=== PATIENT | female | born 1990 | race Caucasian/White ===

== ENCOUNTER 2018-08-08 13:10 | Outpatient (CLI) | payer BC | END 2018-08-08 13:11 | disposition home or self-care (01) | LOC: LAB 13:10 | PROVIDERS: ATTEND Registered Nurse | DX: O46.91 Antepartum hemorrhage, unspecified, first trimester (principal) | CPT/HCPCS: 36415; 84702; 86901 ==

== ENCOUNTER 2018-08-09 21:35 | Outpatient (CLI) | payer BC ==
--- NOTE | 2018-08-10 07:45 | Ultrasound Report ---
Reason: VAGINAL BLEEDING,FIRST TRIMESTER Procedure Date: 08/09/2018 Accession Number: [id number] / [id number] Procedure: US - OB First Trimester CPT Code: FULL RESULT: EXAM: FIRST TRIMESTER OBSTETRIC ULTRASOUND (Less than 11 weeks) EXAM DATE: 08/09/2018 10:40 PM. CLINICAL HISTORY: . Cramping and spotting on and off for a week. LMP: 06/14/2018. COMPARISONS: None. TECHNIQUE: Transabdominal ultrasound examination with static image documentation. CLINICAL DATES: EGA 8 weeks 0 days with YUDELKA 03/21/2019 based on LMP. ASSESSMENT: Gestational Sac: Single intrauterine. Mean gestational sac diameter: 36.7 mm = 8 weeks 6 days. Embryo: CRL (crown-rump length) 17.7 mm = 8 weeks 2 days. Cardiac activity: 166 beats per minute. Yolk sac: 3.5 mm. Amniotic fluid: Not accurately assessed at this gestational age. Early placenta: Not visible at this gestational age. Other: No perigestational fluid collection demonstrated. MATERNAL STRUCTURES: Uterus: Anteverted. Unremarkable. Cervix: Closed. Right Ovary/Adnexa: The ovary measures 2.1 x 2.4 x 1.6 cm, volume 4.2 cc. Unremarkable. Left Ovary/Adnexa: The ovary measures 1.9 x 3.1 x 2.0 cm, volume 6.1 cc. Unremarkable. Free Fluid: None. Other: None. IMPRESSION: 1. Single viable intrauterine at EGA 8 weeks 2 days with YUDELKA 03/19/2019 based on crown-rump length, which is concordant with clinical dates. 2. No abnormalities identified to explain cramping and spotting. RADIA The call report notification system was initiated by Dr. Ty Pritchett at 11:06 PM hrs on 08/09/2018.
== END 2018-08-09 21:36 | disposition home or self-care (01) ==
LOC: DI 21:35
PROVIDERS: ATTEND Registered Nurse
DX: O46.91 Antepartum hemorrhage, unspecified, first trimester (principal); Z3A.08 8 weeks gestation of pregnancy
CPT/HCPCS: 76801

== ENCOUNTER 2018-08-31 02:57 | Outpatient (CLI) | payer BC | END 2018-08-31 02:58 | disposition critical access hospital (66) | LOC: EMS 02:57 | PROVIDERS: ATTEND Surgery | DX: N93.9 Abnormal uterine and vaginal bleeding, unspecified (principal); R10.9 Unspecified abdominal pain; R42 Dizziness and giddiness; R11.0 Nausea | CPT/HCPCS: A0425; A0427 ==

== ENCOUNTER 2018-08-31 03:35 | Emergency (ER) | payer BC ==
--- NOTE | 2018-08-31 03:57 | ED Physician Documentation ---
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 felt well until 10 PM tonight when she had sudden onset pelvic cramping and vaginal bleeding. BIBA and given fentanyl en route. Review of Systems Constitutional: reports: Reviewed and negative Cardiac: reports: Reviewed and negative Respiratory: reports: Reviewed and negative GI: reports: Abdominal Pain (pelvic pain). denies: Nausea, Vomiting : reports: Vaginal bleeding. 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 - Past Surgical History /RATING EXAMINER: Other - Present Medications Home Medications: Ambulatory Orders Medication Instructions Recorded Confirmed oxyCODONE [Roxicodone] 5 mg PO Q6H PRN #14 tablet 08/31/18 - Allergies Allergies/Adverse Reactions: Allergies Allergy/AdvReac Type Severity Reaction Status Date / Time No Known Drug Allergies Allergy Verified 08/31/18 03:41 - Social History Does the pt smoke?: No Smoking Status: Never smoker Does the pt drink ETOH?: No Does the pt have substance abuse?: No - Immunizations Immunizations are current?: Yes PD ED PE NORMAL - Vitals Vital signs reviewed: Yes - General General: Alert and oriented X 3, No acute distress, Well developed/nourished - Cardiac Cardiac: RRR, No murmur - Respiratory Respiratory: No respiratory distress, Clear bilaterally - Abdomen Abdomen: Normal bowel sounds, Soft, Non tender, Non distended - Back Back: No CVA TTP PD ED PE EXPANDED - Female Female : Cloth Sander present, Other (No active bleeding. Small amount clotted blood in vagina. IUD string from cervical os without any other visible portion of IUD. ). No: Dilated cervix, Tissue present Results - Vitals Vitals: Oxygen O2 Source Room air - Labs Labs: Laboratory Tests 08/31/18 08/31/18 04:20 04:20 WBC 7.8 RBC 3.13 L Hgb 9.9 L Hct 29.0 L MCV 92.7 MCH 31.5 H MCHC 34.0 RDW 12.8 Plt Count 239 MPV 7.9 Neut # (Auto) 6.1 Lymph # (Auto) 0.9 L Worth # (Auto) 0.6 Eos # (Auto) 0.2 Baso # (Auto) 0.1 Absolute Nucleated RBC 0.00 Nucleated RBC % 0.0 Sodium 136 Potassium 3.5 Chloride 105 Carbon Dioxide 24 Anion Gap 7.0 BUN 12 Creatinine 0.6 Estimated GFR (MDRD) 118 Glucose 90 Calcium 8.6 - Rads (name of study) Pelvic / TV US Radiology: Prelim report reviewed, See rad report PD MEDICAL DECISION MAKING - ED course Complexity details: reviewed results, re-evaluated patient, considered differential, d/w patient Departure - Departure Disposition: 01 Home, Self Care Clinical Impression: Vaginal bleeding Condition: Good Instructions: ED Pelvic Pain UKO, ED Post Op Pain Follow-Up: Loraine Chakraborty DO [Provider Admit Priv/Credential] - (Call this morning to arrange for next available appointment) Prescriptions: oxyCODONE [Roxicodone] 5 mg PO Q6H PRN #14 tablet PRN Reason: Pain Discharge Date/Time: 08/31/18 07:04
[2018-08-31] MEDS ORDERED: MORPHINE 2 MG/ML CARPUJECT IVP STA ×2 (04:12→06:01)
[2018-08-31 04:42] LABS: BASOPHILS # (AUTO) 0.1 10^3/uL (0.0-0.1); BASOPHILS % (AUTO) 1.1 %; EOSINOPHILS # (AUTO) 0.2 10^3/uL (0.0-0.7); EOSINOPHILS % (AUTO) 2.1 %; HGB - HEMOGLOBIN 9.9 g/dL (12.0-16.0); LYMPHOCYTES # (AUTO) 0.9 10^3/uL (1.5-3.5); LYMPHOCYTES % (AUTO) 11.8 %; MEAN CORPUSCULAR HEMOGLOBIN 31.5 pg (27.0-31.0); MEAN CORPUSCULAR VOLUME 92.7 fL (81.0-99.0); MEAN PLATELET VOLUME 7.9 fL (7.9-10.8); MONOCYTES # (AUTO) 0.6 10^3/uL (0.0-1.0); MONOCYTES % (AUTO) 7.6 %; NEUTROPHILS # (AUTO) 6.1 10^3/uL (1.5-6.6); NEUTROPHILS % (AUTO) 77.4 %; PLT - PLATELET COUNT 239 10^3/uL (130-450); RED BLOOD COUNT 3.13 10^6/uL (4.20-5.40); RED CELL DISTRIBUTION WIDTH 12.8 % (12.0-15.0); WHITE BLOOD COUNT 7.8 x10^3/uL (4.8-10.8)
[2018-08-31 04:44] LABS: CALCIUM 8.6 mg/dL (8.5-10.3); CREATININE 0.6 mg/dL (0.4-1.0)
--- NOTE | 2018-08-31 05:57 | Ultrasound Report ---
Reason: pelvic pain, vaginal bleeding Procedure Date: 08/31/2018 Accession Number: [id number] / [id number] Procedure: US - Pelvic w/Transvaginal CPT Code: FULL RESULT: EXAM: PELVIC ULTRASOUND EXAM DATE: 08/31/2018 05:34 AM. CLINICAL HISTORY: Pelvic pain, vaginal bleeding. COMPARISON: None. TECHNIQUE: Realtime transabdominal pelvic scan performed to identify the uterus and adnexa and as an overview of other pelvic structures, followed by transvaginal scan to provide greater detail of the uterus and adnexa, with static image documentation. FINDINGS: Uterus: 8.6 x 8.2 x 5.7 cm, volume 210 cc. Anteverted position. Normal overall size and echotexture. Masses: None. Endometrium: 17 mm. There is focal heterogeneous nodularity in the fundal endometrium, measuring 2.0 x 1.8 x 1.2 cm, without internal vascularity, compatible with thrombus. IUD is noted in the endometrial canal. Cervix: Unremarkable. Right Ovary: 3.0 x 2.1 x 1.5 cm, volume 5 cc. Normal echotexture and blood flow. Left Ovary: 2.8 x 1.8 x 1.7 cm, volume 4 cc. 2.0 x 1.4 x 0.9 cm hemorrhagic cyst. Free Fluid: None. Other: None. IMPRESSION: Avascular heterogeneous material in the fundal endometrium, likely representing thrombus. IUD in the endometrial canal. Hemorrhagic left ovarian cyst. RADIA
[2018-08-31 06:03] VITALS: BP 110/78
[2018-08-31] MEDS ORDERED: oxyCODONE 5 MG TABLET PO STA (06:53)
== END 2018-08-31 07:04 | disposition home or self-care (01) ==
LOC: EDUNIT# → ED 03:35
DX: N93.9 Abnormal uterine and vaginal bleeding, unspecified (principal); Z97.5 Presence of (intrauterine) contraceptive device; Z98.890 Other specified postprocedural states
CPT/HCPCS: 36415; 76830; 76856; 80048; 85025; 96374; 96376; 99283; 99284; A9270

== ENCOUNTER 2023-02-17 19:54 | Outpatient (CLI) | payer BC, OTHER | END 2023-02-17 23:59 | disposition short-term general hospital (02) | LOC: EMS 19:54 | DX: R10.32 Left lower quadrant pain (principal); R20.0 Anesthesia of skin; R50.9 Fever, unspecified | CPT/HCPCS: A0425; A0427 ==

== ENCOUNTER 2023-06-12 08:52 | Emergency (ER) | payer BC, OTHER ==
[2023-06-12 09:09] VITALS: O2SAT 100
--- NOTE | 2023-06-12 09:30 | XRAY Report ---
PROCEDURE: Knee 4 View LT INDICATIONS: Trauma TECHNIQUE: 4 views of the knee(s) were acquired. COMPARISON: None. FINDINGS: Bones: No fractures or dislocations. Normal alignment. Joint spaces are maintained. No suspicious b lincoln lesions. Soft tissues: Trace knee joint effusion. No suspicious soft tissue calcifications or masses. IMPRESSION: No acute bony abnormality. Reviewed by: Neela Lopez MD on 06/12/2023 9:29 AM [facility] Approved by: Neela Lopez MD on 06/12/2023 9:29 AM PST Station ID: [id number]
[2023-06-12] MEDS ORDERED: oxyCODONE 5 MG TABLET PO STA (09:46)
--- NOTE | 2023-06-12 09:50 | ED Physician Documentation ---
PD HPI LOWER EXT INJURY - Stated complaint Stated Complaint: L LEG PX - Chief complaint Chief Complaint: Trauma Ext - History obtained from History obtained from: Patient - Additional information Additional information: Patient is a 33-year-old female presenting for evaluation of left leg injury. Around 9 PM she was walking her large dogs. At the were disturbed by a seal barking and pulled her forward. She then fell into a vida area and had her leg caught between 2 large rocks. She denies hitting her head or having LOC. She had trouble sleeping overnight due to the pain. She denies prior injuries to this extremity. She does not take a blood thinner. 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 : None HEENT: None Psych: None Musculoskeletal: None Derm: None - Past Surgical History Past Surgical History: No /DRUG DEPARTMENT WORKER: Other - Present Medications Home Medications: Ambulatory Orders Medication Instructions Recorded Confirmed HYDROcod/ACETAM 5/325 [[place] 5/325] 1 tablet PO Q6H PRN #12 tablet 06/12/23 Lidocaine Patch 5% [Lidoderm Patch] 1 patch TOP DAILY PRN #10 patch 06/12/23 - Allergies Allergies/Adverse Reactions: Allergies Allergy/AdvReac Type Severity Reaction Status Date / Time No Known Drug Allergies Allergy Verified 06/12/23 08:57 - Social History Does the pt smoke?: No Smoking Status: Never smoker Does the pt drink ETOH?: Yes Does the pt have substance abuse?: No - Immunizations Immunizations are current?: Yes PD ED PE NORMAL - General General: Alert and oriented X 3, No acute distress, Well developed/nourished - HEENT HEENT: Atraumatic - Neck Neck: Supple, no meningeal sign - Cardiac Cardiac: RRR, Strong equal pulses - Respiratory Respiratory: No respiratory distress - Extremities Extremities: Other (Pain on range of motion of left knee and left ankle with no visible deformity or any significant swelling,Compartments of extremity are soft) - Neuro Neuro: No motor deficit, No sensory deficit Results - Vitals Vitals: Vital Signs - 24 hr 11/27/23 11/27/23 08:58 10:22 Temperature 36.7 C Heart Rate 84 84 Respiratory 16 18 Rate Blood Pressure 157/95 H 133/95 H O2 Saturation 100 100 Oxygen O2 Source Room air PD Medical Decision Making - ED course Complexity details: reviewed results, re-evaluated patient, d/w patient ED course: Patient is a 33-year-old female presenting for evaluation of left leg injury after a fall last night. No head injury. Not on blood thinners. No deformity or significant swelling noted on exam. X-rays were obtained of the left knee and left ankle Which I reviewed I see no fracture or dislocation. Patient was placed into a knee immobilizer and given crutches. She was instructed on need for continued supportive care as well as concerning symptoms to return for. Departure - Departure Disposition: 01 Home, Self Care Clinical Impression: Left knee injury, Left ankle injury Condition: Stable Instructions: ED Knee Pain UKO, ED Sprain Ankle Prescriptions: Lidocaine Patch 5% [Lidoderm Patch] 1 patch TOP DAILY PRN #10 patch PRN Reason: pain HYDROcod/ACETAM 5/325 [[place] 5/325] 1 tablet PO Q6H PRN #12 tablet PRN Reason: Pain Comments: Your x-rays do not show any broken bones. We have placed you into a knee immobilizer and given you crutches. I would recommend ice, elevation, anti- inflammatories until you are able to put weight on the leg without a lot of pain. I sent a small amount of narcotic pain medication to [facility] in [place] to help you with the more intense pain but I would recommend Using these only if really needed. Please follow-up with your primary care provider if your symptoms or not improving over the course of the next week. I am prescribing a short course of narcotic pain medication for you. These are potentially dangerous and addictive medications that should be used carefully. These medications may constipate you. Take an aidx-gfa-xibgtey stool softener (docusate) twice daily with plenty of water while taking these medications. If you go 24 hours without a bowel movement, take ghqb-hru-mxsoehw miralax, per package instructions. Do not drink or drive while taking these medications. If you received narcotic or sedating medications while in the emergency department, do not drive for 24 hours. Store this medication in a safe, secure place and out of reach of children. It is a violation of federal law to give or sell this medication to another person or to use in a manner other than prescribed. The ED will not refill narcotic prescriptions, including prescriptions lost or stolen. To dispose of unwanted medications: 1. [facility] at [address] in [place] has a medication drop box. They accept prescription medications (in pill form) Monday through Monday 9:00 a.m. to 5:00 p.m. 2. The [facility] accepts prescription medications (in pill form only) for disposal year round. Call for more information. 3. Contact the [facility] for the next [facility] sponsored prescription drug collection event. , [phone], or [phone]; Note that many narcotic pain relievers also contain Tylenol/acetaminophen. Please ensure that your total dose of acetaminophen from all sources does not exceed 3 g (3000 mg) per day. Forms: PCP List, Activity restrictions Discharge Date/Time: 06/12/23 10:32
--- NOTE | 2023-06-12 10:00 | XRAY Report ---
PROCEDURE: Ankle 3 View LT INDICATIONS: fall/pain TECHNIQUE: 3 views of the ankle were acquired. COMPARISON: None. FINDINGS: Bones: No fractures or dislocations. Ankle mortise is normally aligned. No suspicious bony lesions . Soft tissues: No tibiotalar joint effusion. Achilles tendon appears normal. IMPRESSION: No acute bony abnormality. Reviewed by: Charles Preston MD on 06/12/2023 9:59 AM [facility] Approved by: Charles Preston MD on 06/12/2023 9:59 AM [facility] Station ID: [id number]
[2023-06-12 10:29] VITALS: BP 133/95
== END 2023-06-12 10:32 | disposition home or self-care (01) ==
LOC: ED 08:52
DX: S89.92XA Unspecified injury of left lower leg, initial encounter (principal); S99.912A Unspecified injury of left ankle, initial encounter; W18.39XA Other fall on same level, initial encounter; Y93.K1 Activity, walking an animal
CPT/HCPCS: 73564; 73610; 99283; 99284; A9270